=== PATIENT | male | born 1975 | race Two or more races ===

== ENCOUNTER 2018-02-02 08:54 | Emergency (ER) | payer OTHER ==
[~2018-02-02] VITALS: Ht 165.1 cm; Wt 54.7 kg
[2018-02-02] MEDS ORDERED: ERYTHROMYC1 APPLICAT LEFT EYE (10:33)
[2018-02-02 10:51] VITALS: BP 142/98
== END 2018-02-02 10:52 | disposition home or self-care (01) ==
LOC: EME 08:54
DX: H57.8 Other specified disorders of eye and adnexa (principal); H53.149 Visual discomfort, unspecified; F17.200 Nicotine dependence, unspecified, uncomplicated
CPT/HCPCS: 99281; 99283